=== PATIENT | male | born 1995 | race Caucasian/White ===

== ENCOUNTER 2017-02-08 21:09 | Emergency (ER) | payer BC ==
[~2017-02-08 21:09] MED LIST: FLEXERIL 1010 MG/TAB PO
[2017-02-08 21:19] VITALS: BP 132/78; PULSE 111; TEMP 98
[2017-02-08 21:59] LABS: BASO % 0.2 % (0.0-2.0); EOS # 0.3 (0.0-0.7); EOS % 1.9 % (0-4.0); GRAN # 10.9 (1.4-6.5); GRAN % 66.6 % (42.2-75.2); HEMATOCRIT 40.9 % (42.0-52.0); LYMPH # 3.8 (1.2-3.4); LYMPH % 23.1 % (20.0-51.0); MEAN CELL VOLUME 86 fl (80.0-100.0); MEAN CORPUSCULAR HEMOGLOBIN 29 pg (27.0-31.0); MEAN CORPUSCULAR HGB CONC 34 g/dl (33.0-37.0); MEAN PLATELET VOLUME 9.6 fl (7.4-10.4); MONO # 1.3 (0.1-0.6); MONO % 7.8 % (1.7-9.3); PLATELET COUNT 264 K/mm3 (130-400); RED BLOOD COUNT 4.76 M/mm3 (4.20-5.60); WHITE BLOOD COUNT 16.3 K/mm3 (4.8-10.8)
[2017-02-08 22:11] LABS: ADJUSTED CALCIUM 8.7 mg/dL (8.4-10.2); ALBUMIN 5.1 gm/dL (3.5-5.0); BILIRUBIN,TOTAL 0.7 mg/dL (0.0-1.0); C-REACTIVE PROTEIN 1.3 mg/dL (0.0-0.9); CALCIUM 9.6 mg/dL (8.4-10.2); CREATININE, serum 1.03 mg/dL (0.66-1.25); TOTAL PROTEIN 8.3 gm/dL (6.4-8.2)
[2017-02-08 22:15] LABS: ERYTHROCYTE SEDIMENTATION RATE 7 mm/hr (0-15)
[2017-02-08] MEDS ORDERED: DOXYCYCLINE 10100 MG PO (23:20)
[2017-02-08] MEDS ORDERED: NORCO 325 MG-51 TAB PO (23:20)
[2017-02-09] MEDS ORDERED: ZOFRAN 4MG T4 MG/TAB PO (17:33)
== END 2017-02-09 01:16 | disposition home or self-care (01) ==
LOC: COL.ER 21:09
PROVIDERS: Emergency Medicine
DX: L03.114 Cellulitis of left upper limb (principal)
CPT/HCPCS: J1885; J7050

== ENCOUNTER 2017-02-11 12:48 | Inpatient (IN) | payer BC ==
[~2017-02-11] VITALS: Ht 182.9 cm; Wt 86.1 kg
[~2017-02-11 12:48] MED LIST changes: +DOXYCYCLINE 10100 MG PO; +NORCO 325 MG-51 TAB PO; +ZOFRAN 4MG T4 MG/TAB PO
[2017-02-11 13:31] LABS: BASO % 0.2 % (0.0-2.0); EOS # 0.3 (0.0-0.7); EOS % 2.3 % (0-4.0); GRAN # 10.3 (1.4-6.5); GRAN % 76.6 % (42.2-75.2); HEMATOCRIT 40.9 % (42.0-52.0); HEMOGLOBIN 13.6 g/dl (13.5-18.0); LYMPH % 14.6 % (20.0-51.0); MEAN CELL VOLUME 88 fl (80.0-100.0); MEAN CORPUSCULAR HEMOGLOBIN 29 pg (27.0-31.0); MEAN CORPUSCULAR HGB CONC 33 g/dl (33.0-37.0); MEAN PLATELET VOLUME 9.6 fl (7.4-10.4); MONO # 0.8 (0.1-0.6); MONO % 5.9 % (1.7-9.3); PLATELET COUNT 252 K/mm3 (130-400); RED BLOOD COUNT 4.67 M/mm3 (4.20-5.60); WHITE BLOOD COUNT 13.5 K/mm3 (4.8-10.8)
[2017-02-11 13:42] LABS: ADJUSTED CALCIUM 9.1 mg/dL (8.4-10.2); ALBUMIN 4.7 gm/dL (3.5-5.0); BILIRUBIN,TOTAL 0.6 mg/dL (0.0-1.0); CALCIUM 9.7 mg/dL (8.4-10.2); CREATININE, serum 0.98 mg/dL (0.66-1.25); POTASSIUM 3.8 mmol/L (3.4-5.0); TOTAL PROTEIN 8.3 gm/dL (6.4-8.2)
[2017-02-11 14:14] VITALS: BP 123/67; PULSE 82; TEMP 98.7
[2017-02-11 15:11] VITALS: BP 123/67; PULSE 82; TEMP 98.4
[2017-02-11 15:33] LABS: COLLECTION METHOD CLEAN CATCH
[2017-02-11 15:51] LABS: MUCOUS Present /lpf; PH 5 (5-8); SQUAMOUS EPITHELIAL None Seen /hpf; URINE APPEARANCE Clear; URINE BACTERIA None Seen /hpf; URINE BILIRUBIN Negative (NEGATIVE); URINE BLOOD Negative (NEGATIVE); URINE COLOR Yellow; URINE GLUCOSE Negative (NEGATIVE); URINE KETONE 1+ (NEGATIVE); URINE LEUKOCYTE ESTERASE Negative (NEGATIVE); URINE PROTEIN(semi-quant) Negative (NEGATIVE); URINE RBC 0-2 /hpf
[2017-02-11 19:58] VITALS: BP 121/63; PULSE 76; TEMP 98.3
[2017-02-12 00:07] VITALS: BP 100/69; PULSE 74; TEMP 98.6
[2017-02-12 06:39] LABS: BASO % 0.2 % (0.0-2.0); EOS # 0.3 (0.0-0.7); GRAN # 3.9 (1.4-6.5); GRAN % 47.3 % (42.2-75.2); LYMPH # 3.4 (1.2-3.4); LYMPH % 40.7 % (20.0-51.0); MEAN CELL VOLUME 90 fl (80.0-100.0); MEAN CORPUSCULAR HEMOGLOBIN 29 pg (27.0-31.0); MEAN CORPUSCULAR HGB CONC 33 g/dl (33.0-37.0); MEAN PLATELET VOLUME 9.7 fl (7.4-10.4); MONO # 0.7 (0.1-0.6); MONO % 8.4 % (1.7-9.3); PLATELET COUNT 233 K/mm3 (130-400); RED BLOOD COUNT 4.12 M/mm3 (4.20-5.60); WHITE BLOOD COUNT 8.2 K/mm3 (4.8-10.8)
[2017-02-12 06:46] LABS: HEMATOCRIT 36.9 % (42.0-52.0)
[2017-02-12 06:54] LABS: CALCIUM 8.6 mg/dL (8.4-10.2); POTASSIUM 3.5 mmol/L (3.4-5.0)
[2017-02-12 07:30] VITALS: BP 105/67; PULSE 63; TEMP 97.6
[2017-02-12 15:43] VITALS: BP 119/63; PULSE 68; TEMP 98
[2017-02-12 19:31] VITALS: BP 109/66; PULSE 72; TEMP 97.6
[2017-02-13 00:18] VITALS: BP 115/53; PULSE 63; TEMP 97.8
[2017-02-13 04:11] VITALS: BP 147/70; PULSE 68; TEMP 97.5
[2017-02-13 04:20] VITALS: BP 103/65; PULSE 94; TEMP 98.4
[2017-02-13 06:14] LABS: BASO % 0.6 % (0.0-2.0); EOS # 0.3 (0.0-0.7); EOS % 4.7 % (0-4.0); GRAN # 2.3 (1.4-6.5); GRAN % 43.1 % (42.2-75.2); HEMATOCRIT 38.1 % (42.0-52.0); HEMOGLOBIN 12.6 g/dl (13.5-18.0); LYMPH # 2.2 (1.2-3.4); MEAN CELL VOLUME 89 fl (80.0-100.0); MEAN CORPUSCULAR HEMOGLOBIN 30 pg (27.0-31.0); MEAN CORPUSCULAR HGB CONC 33 g/dl (33.0-37.0); MEAN PLATELET VOLUME 10.5 fl (7.4-10.4); MONO # 0.5 (0.1-0.6); MONO % 9.4 % (1.7-9.3); PLATELET COUNT 286 K/mm3 (130-400); RED BLOOD COUNT 4.27 M/mm3 (4.20-5.60); WHITE BLOOD COUNT 5.3 K/mm3 (4.8-10.8)
[2017-02-13 06:24] LABS: CREATININE, serum 0.89 mg/dL (0.66-1.25); POTASSIUM 3.9 mmol/L (3.4-5.0)
[2017-02-13 07:49] VITALS: BP 95/56; PULSE 65; TEMP 97.8
[2017-02-13 11:23] VITALS: BP 118/67; PULSE 72; TEMP 97.6
[2017-02-13] MEDS ORDERED: DOXYCYCLINE 10100 MG PO (15:14)
[2017-02-13] MEDS ORDERED: ZYVOX 600MG600 MG PO (15:16)
[2017-02-13 15:27] VITALS: BP 122/76; PULSE 62; TEMP 97.7
== END 2017-02-13 16:40 | disposition home or self-care (01) | DRG 603 ==
LOC: EUO 12:48 → MEDICAL 12:49
PROVIDERS: Nurse Practitioner Family; Physician Assistant
DX: L03.114 Cellulitis of left upper limb (principal); S60.415A Abrasion of left ring finger, initial encounter; M65.842 Other synovitis and tenosynovitis, left hand; Z87.891 Personal history of nicotine dependence; Z23 Encounter for immunization; W26.9XXA Contact with unspecified sharp object(s), initial encounter
CPT/HCPCS: 99223-AI; 99233-AI; 99239; A9585; J0696; J1650; J1885; J2405; J3370; J7030; J7050